=== PATIENT | male | born 1985 | race Caucasian/White ===

== ENCOUNTER 2025-10-09 01:02 | Emergency (ER) | payer OTHER ==
[~2025-10-09] VITALS: Ht 180.3 cm; Wt 93.3 kg
--- NOTE | 2025-10-09 01:24 | Physician Documentation ---
History of Present Illness ~ Chief Complaint: Headache Stated Complaint: FALL,HEADACHE Time Seen by MD: 02:52 HPI Is a very pleasant 40-year-old male that presents to the emergency department for evaluation of a head injury sustained 2 days ago. Patient reports that he was seen at [facility] after suffering a seizure and falling and hitting his head. Patient reports that he has had a headache all day he was told to report to the emergency department or primary care provider's office to be re-evaluated if he developed a headache or any other symptoms. Denies any lightheadedness dizziness vision changes fever chills nausea vomiting or diarr hea at this time. No other symptoms reported at this time. Medication Reconciliation Allergies: Coded Allergies: Sulfa (Sulfonamide Antibiotics) (Verified Allergy, Mild, 10/09/25) gluten (Verified Allergy, Unknown, 10/09/25) Physical Exam Vital Signs: Temperature: 98.0, Source: Oral, Heart Rate: 92, Respiratory Rate: 18, BP: 164/103, Pulse Oximetry: 98, Weight: 93.270 Oxygen Flow Rate: 0 Progress Results/Orders Results/Orders Orders - ANDREW VALENTINO MD Ct Head (10/09/25 01:31) Completed Orders - ANDREW VALENTINO MD Ct Head (10/09/25 01:31) Urinalysis, Cult If Indicated (10/09/25 02:55) Ketorolac Trometh 15mg/Ml Vial (Toradol (10/09/25 02:55) Acetaminophen 325mg Tablet (Tylenol Tabl (10/09/25 02:55) Medications Received in ER Medications (Trade) Dose Ordered Sig/Elma Route PRN Reason Start Time Stop Time Status Last Admin Dose Admin (Toradol injection) 30 mg ONCE ONCE IM 10/09/25 02:55 10/09/25 02:56 DC 10/09/25 03:14 30 MG (Tylenol tablet) 650 mg ONCE ONCE PO 10/09/25 02:55 10/09/25 02:56 DC 10/09/25 03:15 650 MG Vital Signs 10/09/25 10/09/25 10/09/25 01:15 02:29 02:34 Temp 98.0 98.0 Pulse 92 93 Resp 18 18 B/P (MAP) 164/103 131/106 (114) Pulse Ox 98 97 O2 Flow Rate 0 0 Laboratory Tests Test 10/09/25 02:42 Urine Specimen Description Cln catch midstream Urine Color Yellow Urine Clarity Clear Urine pH 6.5 Urine Specific [place] 1.020 Urine Protein Negative Urine Glucose (UA) Negative Urine Ketones Negative Urine Occult Blood Negative Urine Nitrite Negative Urine Bilirubin Negative Urine Urobilinogen 0.2 Urine Leukocyte Esterase Negative Urine Culture Indicated Not ind Volume Urine Centrifuged 10 ml Urine Comment Medical Decision Making Additional information obtaine: other Findings Patient presents to the emergency room for evaluation of headache after sustaining an injury as well as dysuria. Differentials include but are not christian ited to delayed head bleed, concussion, urinary tract infection therefore CT scan urinalysis performed which were reassuring. Differential Dx:Considerations: Include: dehydration, Delirium Tr., DKA, encephalopathy, hypercalcemia, HHNC, hypoglycemia, hypernatremia, hyponatremia, hypoxia, postictal, closed head injury, C-spine injury, CVA, mass lesion, subarachnoid hemorrhage, drug overdose, encephalopathy, ETOH intoxication, medication toxicity, infection - meningitis, infection - sepsis, infection - UTI, heart failure, renal failure, respiratory failure, hyperthermia, hypothermia, other Departure Disposition: 01 HOME / SELF CARE / HOMELESS Impression: Primary Impression: Brain concussion Condition: Stable Discharge Instructions: Post Concussion Syndrome,Adult Referrals: NO PRIMARY CARE PROVIDER (PCP) Signature Scribe Signature: No scribe Attestation: The note accurately reflects work and decisions made by me.Andrew Valentino MD 10/09/25 03:35 IRVING GAXIOLA Oct 09, 2025 01:24 ANDREW VALENTINO MD Oct 09, 2025 03:35
--- NOTE | 2025-10-09 02:23 | RADIOLOGY REPORT ---
EXAM: CT CT HEAD INDICATION: HEADACHE TECHNIQUE: CT of the head without intravenous contrast. Radiation Dose : 1. Head: CT Dose: CTDI volume is 65.68 mGy. Dose-length product is 1468.59 mGy*cm The dose indicators for CT are the volume Computed Tomography (CT) Dose Index (CTDIvol) and the Dose Length Product (DLP), and are measured in units of mGy and mGy-cm, respectively. These indicators are not patient dose, but values generated from the CT scanner acquisition factors. The report includes radiation exposure data for exposures received during this examination. COMPARISON: None FINDINGS: There is no evidence of acute intracranial hemorrhage, extra-axial collection, mass effect, midline shift, herniation or hydrocephalus. The ventricles, sulci and cisterns are age appropriate. The parsons-white differentiation is intact. Left maxillary mucosal sinus disease. The remaining visualized paranasal sinuses and mastoid air cells are clear. The surrounding soft tissues and osseous structures are unremarkable. IMPRESSION: 1. No acute intracranial abnormality. Radiation optimization: All CT scans at this facility use at least one of these dose optimization techniques: automated exposure control mA and/or kV adjustment per patient size (includes targeted exams where dose is matched to clinical indication) or iterative reconstruction.
[2025-10-09 03:06] LABS: LEUKOCYTE ESTERASE ,URINE NEGATIVE (Neg); NITRITES, URINE NEGATIVE (Neg); OCCULT BLOOD,URINE NEGATIVE (Neg)
[2025-10-09] MEDS: ketorolac trometh 15mg/ml vial 15 MG/ML ML IM ONE (03:14)
[2025-10-09 03:18] LABS: UA COLLECTION TYPE CLN CATCH MIDSTREAM
[2025-10-09 03:44] VITALS: BP 135/99; PULSE 72; RESP 14; TEMP 98; O2SAT 98
== END 2025-10-09 03:45 | disposition home or self-care (01) ==
LOC: ER 01:03
DX: S06.0XAA Concussion with loss of consciousness status unknown, initial encounter (principal); Z88.2 Allergy status to sulfonamides; Z88.8 Allergy status to other drugs, medicaments and biological substances; W18.39XA Other fall on same level, initial encounter; Y93.89 Activity, other specified; Y92.89 Other specified places as the place of occurrence of the external cause; Y99.8 Other external cause status
CPT/HCPCS: 70450; 81003; 96372; 99285; J1885